=== PATIENT | female | born 1985 | race Caucasian/White ===

== ENCOUNTER 2025-03-09 18:27 | Inpatient (IN) | payer OTHER ==
[~2025-03-09] VITALS: Ht 182.9 cm; Wt 87.1 kg
[2025-03-09] MEDS ORDERED: IV NS 0.9% 1,000 ML BAG IV ONE (19:00)
[2025-03-09] MEDS ORDERED: PIPERACI/TAZO 3.375GM/D5W 50ML PB IV ONE (19:03)
[2025-03-09 19:11] LABS: PLATELET COUNT (AUTO) 294 K/uL (150-450); RED BLOOD CELL COUNT(AUTO) 4.06 MIL/uL (4.0-5.2); RED CELL DISTRIBUTION WIDTH 15.1 % (11.5-15.0); WHITE BLOOD COUNT (AUTO) 15.9 K/uL (4.3-11.0)
[2025-03-09] MEDS: PIPERACILLIN /TAZOBACTAM 3.375 G in IV D5W 50 ML IV ONE (19:23)
[2025-03-09] MEDS: IV NS 0.9% 1,000 ML BAG IV ONE (19:23)
[2025-03-09 19:25] LABS: INR 1.04 (0.91-1.10)
[2025-03-09 19:26] LABS: CALCIUM, SERUM 7.6 mg/dL (8.5-10.1); CREATININE 0.9 mg/dL (0.6-1.3); SODIUM SERUM 135.0 mmol/L (136-145); UREA NITROGEN, BLOOD 16.0 mg/dL (7-18)
[2025-03-09 19:29] LABS: LACTIC ACID 1.5 mmol/L (0.4-2.0)
[2025-03-09 19:30] LABS: ASPARTATE AMINOTRANSFERASE 13.0 U/L (15-37); TOTAL PROTEIN, SERUM 7.1 g/dL (6.4-8.2)
[2025-03-09 19:42] LABS: ASPARTATE AMINOTRANSFERASE 15.0 U/L (15-37); NT-PRO BNP 2527.0 pg/mL (0-125); PREGNANCY TEST SERUM QUAN 0.0 mIU/mL (0-6); TOTAL PROTEIN, SERUM 7.1 g/dL (6.4-8.2)
[2025-03-09] MEDS ORDERED: VANCOMYCIN 1 GM /D5W 250 ML PB IV ONE (20:48)
[2025-03-09] MEDS ORDERED: FUROSEMIDE 20 MG/2 ML VIAL ONE (20:48)
[2025-03-09] MEDS: FUROSEMIDE 20 MG/2 ML VIAL IV ONE (20:55)
[2025-03-09] MEDS: VANCOMYCIN 1 GM in IV D5W 250 ML IV ONE (20:55)
[2025-03-09] MEDS ORDERED: MORPHINE SULFATE INJ 4 MG/ML DISP.SYRIN ONE (20:59)
[2025-03-09] MEDS: MORPHINE SULFATE INJ 2 MG/ML DISP.SYRIN IV ONE (21:02)
[2025-03-09 21:20] LABS: APPEARANCE,URINE CLEAR (CLEAR); BLOOD, URINE 3+ Ery/uL (NEGATIVE); LEUKOCYTE ESTERASE ,URINE NEGATIVE (NEGATIVE); NITRITE, URINE NEGATIVE (NEGATIVE); UGLUCOSE 3+ mg/dL (NEGATIVE)
[2025-03-09] MEDS ORDERED: DOSING PER PHARMACY-VANCOMYCIN IV XX PRN (21:30)
[2025-03-09] MEDS ORDERED: DOSING PER PHARMACY-CEFEPIME IVPB XX PRN (21:30)
[2025-03-09] MEDS ORDERED: DEXTROSE 50%-WATER 50 ML DISP.SYRIN IV PRN (21:30)
[2025-03-09] MEDS ORDERED: ONDANSETRON HCL/PF 4 MG/2 ML VIAL IVP PRN (21:30)
[2025-03-09] MEDS ORDERED: hydrALAZINE HCL IV 20 MG VIAL IV PRN (21:30)
[2025-03-09] MEDS ORDERED: CT SWABBABLE VALVE TRANS SET 1 EA INFUS.SET MC ONE (21:35)
[2025-03-09] MEDS ORDERED: IV NS 0.9% 250 ML IV ONE (21:35)
[2025-03-09] MEDS ORDERED: IOHEXOL-350 100 ML VIAL IV ONE (21:35)
[2025-03-09 21:45] LABS: SQUAMOUS EPITHELIAL CELL,UR Moderate /HPF (None Seen)
[2025-03-09 21:46] LABS: ADD URINE CULTURE YES
[2025-03-09 22:40] VITALS: BP 119/78; TEMP 98.2; O2SAT 96
[2025-03-09] MEDS: BLOOD SUGAR DIAGNOSTIC 1 EACH STRIP VI SCH (23:16)
[2025-03-09] MEDS: *INSULIN REGULAR(HUMULIN R)HUM 100 UNIT/ML VIAL SQ PRN (23:17)
[2025-03-09] MEDS ORDERED: CEFEPIME 1 GM VIAL ONE (23:22)
[2025-03-09] MEDS ORDERED: INSULIN GLARGINE, 100 UNIT/ML CARTRIDGE SQ ONE (23:23)
[2025-03-09] MEDS: DIVALPROEX SODIUM 250 MG TABLET.DR PO SCH (23:32)
[2025-03-09] MEDS: INSULIN GLARGINE, 100 UNIT/ML CARTRIDGE SQ SCH (23:34)
[2025-03-09] MEDS: CEFEPIME 2 GM in IV D5W 100 ML IV SCH (23:40)
[2025-03-10] VITALS: BP 121/65; TEMP 98.2; O2SAT 95
[2025-03-10 04:00] VITALS: BP 117/60; TEMP 98.4; O2SAT 94
[2025-03-10] MEDS: MORPHINE SULFATE INJ 2 MG/ML DISP.SYRIN IV PRN (04:15)
[2025-03-10] MEDS: INSULIN REGULAR, HUMAN 100 UNIT/ML 3 ML VIAL SQ PRN (05:55)
[2025-03-10 06:24] LABS: PLATELET COUNT (AUTO) 258 K/uL (150-450); RED BLOOD CELL COUNT(AUTO) 3.75 MIL/uL (4.0-5.2); RED CELL DISTRIBUTION WIDTH 15.3 % (11.5-15.0); WHITE BLOOD COUNT (AUTO) 14.8 K/uL (4.3-11.0)
[2025-03-10 06:36] LABS: ASPARTATE AMINOTRANSFERASE 18.0 U/L (15-37); CALCIUM, SERUM 7.7 mg/dL (8.5-10.1); CREATININE 0.9 mg/dL (0.6-1.3); PHOSPHORUS 2.9 mg/dL (2.5-4.9); SODIUM SERUM 137.0 mmol/L (136-145); TOTAL PROTEIN, SERUM 6.8 g/dL (6.4-8.2); UREA NITROGEN, BLOOD 13.0 mg/dL (7-18)
[2025-03-10 07:57] LABS: IRON, SERUM 11.0 ug/dl (50-175)
[2025-03-10 08:00] VITALS: BP 106/67; TEMP 98.1; O2SAT 94
[2025-03-10] MEDS: LORAZEPAM INJ 2 MG/ML VIAL IV PRN (08:49)
[2025-03-10] MEDS: HEPARIN SODIUM, PORCINE 5000 UNITS/1 ML VIAL SQ SCH (08:49)
[2025-03-10] MEDS: CEFEPIME 2 GM in IV D5W 100 ML IV SCH (08:50)
[2025-03-10] MEDS ORDERED: PANT40TA2 PO (09:19)
[2025-03-10] MEDS ORDERED: DIVA500T2 PO (09:19)
[2025-03-10] MEDS ORDERED: GABA-532 PO (09:19)
[2025-03-10] MEDS ORDERED: MONT10TA22 PO (09:19)
[2025-03-10] MEDS ORDERED: DOCU-141 PO (09:19)
[2025-03-10] MEDS ORDERED: INSU100I30 SQ (09:19)
[2025-03-10] MEDS ORDERED: INSU100V30 SQ (09:19)
[2025-03-10] MEDS: MAGNESIUM OXIDE 400 MG TABLET PO ONE (10:15)
[2025-03-10] MEDS: VANCOMYCIN HCL 1.25 GM in IV D5W 250 ML IV SCH (10:15)
[2025-03-10 12:10] VITALS: BP 112/58; TEMP 98.4; O2SAT 90
[2025-03-10 16:00] VITALS: BP 139/81; TEMP 98.6; O2SAT 94
[2025-03-10] MEDS: GABAPENTIN 100 MG CAPSULE PO SCH (16:09)
[2025-03-10] MEDS: DOCUSATE SODIUM 100 MG CAPSULE PO SCH (16:09)
[2025-03-10] MEDS ORDERED: DIVALPROEX SODIUM 500 MG TABLET.DR PO SCH (17:00)
[2025-03-10] MEDS: MONTELUKAST SODIUM (10MG) 10 MG TABLET PO SCH (21:39)
[2025-03-11 04:10] VITALS: BP 158/90; TEMP 98.4; O2SAT 97
[2025-03-11 07:19] LABS: PLATELET COUNT (AUTO) 309 K/uL (150-450); RED BLOOD CELL COUNT(AUTO) 3.65 MIL/uL (4.0-5.2); RED CELL DISTRIBUTION WIDTH 15.2 % (11.5-15.0); WHITE BLOOD COUNT (AUTO) 11.8 K/uL (4.3-11.0)
[2025-03-11 07:52] LABS: CALCIUM, SERUM 8.4 mg/dL (8.5-10.1); CREATININE 0.9 mg/dL (0.6-1.3); UREA NITROGEN, BLOOD 13.0 mg/dL (7-18)
[2025-03-11 07:59] LABS: SODIUM SERUM 141.0 mmol/L (136-145)
[2025-03-11 08:00] VITALS: BP 135/84; TEMP 97.9; O2SAT 95
[2025-03-11] MEDS: PANTOPRAZOLE 40 MG TABLET.DR PO SCH (08:21)
[2025-03-11] MEDS: INSULIN GLARGINE, 100 UNIT/ML CARTRIDGE SQ SCH (08:43)
[2025-03-11 09:06] LABS: HIV-1/2 ANTIBODY NON REACTIVE (NONREACTIVE)
[2025-03-11 16:00] VITALS: BP 137/87; TEMP 98.2; O2SAT 98
[2025-03-11 20:00] VITALS: BP 130/86; TEMP 98.4; O2SAT 94
[2025-03-12 04:00] VITALS: BP 128/87; TEMP 97.9; O2SAT 96
[2025-03-12 07:01] LABS: PLATELET COUNT (AUTO) 300 K/uL (150-450); RED BLOOD CELL COUNT(AUTO) 4.16 MIL/uL (4.0-5.2); RED CELL DISTRIBUTION WIDTH 15.0 % (11.5-15.0); WHITE BLOOD COUNT (AUTO) 9.2 K/uL (4.3-11.0)
[2025-03-12 07:17] LABS: CALCIUM, SERUM 8.3 mg/dL (8.5-10.1); CREATININE 0.8 mg/dL (0.6-1.3); PHOSPHORUS 3.4 mg/dL (2.5-4.9); SODIUM SERUM 141.0 mmol/L (136-145); UREA NITROGEN, BLOOD 14.0 mg/dL (7-18)
[2025-03-12 08:00] VITALS: BP 124/88; TEMP 98.1; O2SAT 95
[2025-03-12] MEDS: MAGNESIUM OXIDE 400 MG TABLET PO ONE (10:01)
== END 2025-03-12 14:15 | DRG 720 ==
LOC: ER 18:27 → TELE1 21:53 → MEDSG1 03-10 11:13
PROVIDERS: ADMIT Internal Medicine; ATTEND Internal Medicine
DX: A41.9 Sepsis, unspecified organism (principal); J96.01 Acute respiratory failure with hypoxia; J15.69 Pneumonia due to other Gram-negative bacteria; E44.0 Moderate protein-calorie malnutrition; I50.32 Chronic diastolic (congestive) heart failure; M86.8X7 Other osteomyelitis, ankle and foot; M86.9 Osteomyelitis, unspecified; E88.09 Other disorders of plasma-protein metabolism, not elsewhere classified; T87.44 Infection of amputation stump, left lower extremity; J44.0 Chronic obstructive pulmonary disease with (acute) lower respiratory infection; L03.116 Cellulitis of left lower limb; N39.0 Urinary tract infection, site not specified; L03.011 Cellulitis of right finger; E11.40 Type 2 diabetes mellitus with diabetic neuropathy, unspecified; F15.10 Other stimulant abuse, uncomplicated; G40.909 Epilepsy, unspecified, not intractable, without status epilepticus; D50.9 Iron deficiency anemia, unspecified; B99.8 Other infectious disease; E11.621 Type 2 diabetes mellitus with foot ulcer; E11.65 Type 2 diabetes mellitus with hyperglycemia; E11.69 Type 2 diabetes mellitus with other specified complication; L97.522 Non-pressure chronic ulcer of other part of left foot with fat layer exposed; R10.11 Right upper quadrant pain; R94.31 Abnormal electrocardiogram [ECG] [EKG]; Z53.20 Procedure and treatment not carried out because of patient's decision for unspecified reasons; Z87.898 Personal history of other specified conditions; Z88.0 Allergy status to penicillin; Z95.2 Presence of prosthetic heart valve; Z89.432 Acquired absence of left foot; Z88.5 Allergy status to narcotic agent; Z88.6 Allergy status to analgesic agent; Z95.5 Presence of coronary angioplasty implant and graft; Z79.899 Other long term (current) drug therapy; Z59.9 Problem related to housing and economic circumstances, unspecified; Z59.00 Homelessness unspecified; Z79.4 Long term (current) use of insulin
CPT/HCPCS: 36415; 71045-TC; 73630-TC; 73718-TC; 80048-TC; 80053-TC; 80076-TC; 80164-TC; 80202-TC; 81001; 82728-TC; 82962-TC; 83540-TC; 83605-TC; 83690-TC; 83735-TC; 83880; 84100-TC; 84484-TC; 84702-TC; 85025-TC; 85730-TC; 87040-TC; 87081-TC; 87086-TC; 87806; 93307-TC; 97110-TC; 97112-TC; 97116-TC; 97530-TC; 97535-TC; A6254; G0378; J0692; J1644; J1815; J1938; J2060; J2270; J2543; J3373; J3490; J7030; J7050; J7060; Q9967